=== PATIENT | male | born 1995 ===

== ENCOUNTER 2023-09-25 00:09 | Emergency (ER) | payer OTHER ==
[~2023-09-25] VITALS: Ht 162.5 cm; Wt 125.2 kg
[2023-09-25] MEDS ORDERED: REXULTI2 MG PO (00:35)
[2023-09-25] MEDS ORDERED: WELLBUTRIN SR150 MG PO (00:35)
[2023-09-25] MEDS ORDERED: PRAZOSIN HCL2 MG PO (00:36)
[2023-09-25] MEDS ORDERED: SINGULAIR10 M1 PO (00:36)
[2023-09-25] MEDS ORDERED: TRAZODONE100 MG PO (00:36)
[2023-09-25] MEDS ORDERED: TOPCARE OMEPRAZ20 MG PO (00:37)
[2023-09-25] MEDS ORDERED: NAPROXEN250 MG PO (00:48)
== END 2023-09-25 01:05 | disposition home or self-care (01) ==
LOC: ED 00:09
DX: S93.401A Sprain of unspecified ligament of right ankle, initial encounter (principal); F41.9 Anxiety disorder, unspecified; F90.9 Attention-deficit hyperactivity disorder, unspecified type; J45.909 Unspecified asthma, uncomplicated; K21.9 Gastro-esophageal reflux disease without esophagitis; W10.1XXA Fall (on)(from) sidewalk curb, initial encounter; Y93.89 Activity, other specified; Y92.009 Unspecified place in unspecified non-institutional (private) residence as the place of occurrence of the external cause; Y99.8 Other external cause status